=== PATIENT | female | born 1980 | race Caucasian/White ===

== ENCOUNTER 2021-05-14 19:57 | Emergency (ER) | payer OTHER ==
[~2021-05-14] VITALS: Ht 165.1 cm; Wt 61.2 kg
== END 2021-05-14 22:04 | disposition left against medical advice (07) ==
LOC: ED 19:57
DX: M79.10 Myalgia, unspecified site (principal); Z20.822 Contact with and (suspected) exposure to COVID-19; Z53.21 Procedure and treatment not carried out due to patient leaving prior to being seen by health care provider; J02.9 Acute pharyngitis, unspecified; R51.9 Headache, unspecified